=== PATIENT | female | born 1940 | race Caucasian/White ===

== ENCOUNTER 2021-02-11 16:22 | Observation (INO) | payer OTHER ==
[2021-02-11 17:32] VITALS: BMI 25.8
[2021-02-11] MEDS ORDERED: HALOPERIDOL LACTATE 5 MG/ML IV ONE (19:19)
[2021-02-11 19:20] LABS: BASO % 0.2 % (0-2.0); EOS % 0.7 % (0-4.5); HEMATOCRIT 36.6 % (32.4-45.2); HEMOGLOBIN 12.5 GM/dL (10.7-15.3); LYMPH % 33.6 % (8-40); MCH 29.5 pg (25.7-33.7); MCHC 34.3 g/dl (32.0-36.0); MEAN PLT VOLUME 7.9 fl (7.5-11.1); MONO % 7.9 % (3.8-10.2); NEUT % 57.6 % (42.8-82.8); PLATELET COUNT 141 10^3/uL (134-434); RBC 4.25 M/mm3 (3.60-5.2); RDW 15.7 % (11.6-15.6); WHITE BLOOD COUNT 7.1 K/mm3 (4.0-10.0)
[2021-02-11] MEDS ORDERED: DIPHTH,PERTUSS(ACELL),TET 0.5 ML DISP.SYRIN IM ONE ×2 (19:20→19:44)
[2021-02-11 19:36] LABS: CHLORIDE 104 mmol/L (98-107); SODIUM 141 mmol/L (136-145)
[2021-02-11 19:37] LABS: ALBUMIN 3.1 g/dl (3.4-5.0); ANION GAP 6 MMOL/L (8-16); CALCIUM 9.3 mg/dL (8.5-10.1); CO2 30 mmol/L (21-32); GLUCOSE,RANDOM 90 mg/dL (74-106)
[2021-02-11 19:40] LABS: CREATININE 0.8 mg/dL (0.55-1.3); SGPT/ALT 27 U/L (13-61)
[2021-02-11 19:41] LABS: SGOT/AST 38 U/L (15-37)
[2021-02-11 19:42] LABS: BILIRUBIN,TOTAL 0.6 mg/dL (0.2-1); TOT PROT 6.4 g/dl (6.4-8.2)
[2021-02-11 19:43] LABS: ALK PHOS 76 U/L (45-117)
[2021-02-11] MEDS ORDERED: HALOPERIDOL LACTATE 5 MG/ML ONE (19:43)
[2021-02-11 23:02] LABS: EPI CELLS >36 /uL (0-25.1); HYALINE CASTS 19 /uL (0-3.1); PH,URINE 5.5 (5.0-8.0); URINE APPEARANCE CLOUDY; URINE BACTERIA 6110 /uL (0-1359); URINE BILIRUBIN NEGATIVE (NEGATIVE); URINE COLOR DK YELLOW; URINE GLUCOSE (UA) NEGATIVE (NEGATIVE); URINE KETONE TRACE (NEGATIVE); URINE LEUK ESTERASE 1+ (NEGATIVE); URINE NITRITE NEGATIVE (NEGATIVE); URINE PROTEIN TRACE (NEGATIVE); URINE WBC 71 /uL (0-25.8)
[2021-02-11 23:55] LABS: URINE RBC 81.1 /uL (0-23.9)
[2021-02-12] MEDS ORDERED: ACETAMINOPHEN 325 MG TABLET (FP) PO PRN (06:05)
[2021-02-12] MEDS ORDERED: SENNOSIDES 8.6MG TABLET (FP) PO PRN (06:08)
[2021-02-12] MEDS ORDERED: CEFTRIAXONE 1 GM in DEXTROSE 5%-WATER - 50 ML IVPB ONE (06:11)
[2021-02-12] MEDS ORDERED: CEFTRIAXONE 1 GM/50 ML BAG ONE ×2 (06:21→10:01)
[2021-02-12 07:52] LABS: CHLORIDE 106 mmol/L (98-107)
[2021-02-12 07:58] LABS: ALBUMIN 2.7 g/dl (3.4-5.0); BLOOD UREA NITROGEN 22.1 mg/dL (7-18); CALCIUM 9.1 mg/dL (8.5-10.1); CO2 29 mmol/L (21-32); GLUCOSE,RANDOM 86 mg/dL (74-106); MAGNESIUM 2.1 mg/dL (1.8-2.4)
[2021-02-12 08:01] LABS: SGPT/ALT 24 U/L (13-61)
[2021-02-12 08:02] LABS: CREATININE 0.8 mg/dL (0.55-1.3); SGOT/AST 25 U/L (15-37)
[2021-02-12 08:03] LABS: BILIRUBIN,TOTAL 0.8 mg/dL (0.2-1); TOT PROT 5.8 g/dl (6.4-8.2)
[2021-02-12 08:04] LABS: ALK PHOS 65 U/L (45-117)
[2021-02-12 08:06] LABS: ANION GAP 6 MMOL/L (8-16); SODIUM 141 mmol/L (136-145)
[2021-02-12 08:24] LABS: BASO % 0.2 % (0-2.0); EOS % 1.3 % (0-4.5); HEMATOCRIT 34.2 % (32.4-45.2); HEMOGLOBIN 11.7 GM/dL (10.7-15.3); LYMPH % 41.4 % (8-40); MCH 29.7 pg (25.7-33.7); MEAN CELL VOLUME 87.2 fl (80-96); MEAN PLT VOLUME 8.2 fl (7.5-11.1); MONO % 8.2 % (3.8-10.2); NEUT % 48.9 % (42.8-82.8); PLATELET COUNT 118 10^3/uL (134-434); RBC 3.93 M/mm3 (3.60-5.2); WHITE BLOOD COUNT 5.7 K/mm3 (4.0-10.0)
[2021-02-12] MEDS ORDERED: MEMANTINE HCL 10 MG TABLET (FP) PO SCH (10:00)
[2021-02-12] MEDS ORDERED: ESCITALOPRAM OXALATE 20 MG TABLET PO SCH (10:00)
[2021-02-12] MEDS ORDERED: ESCITALOPRAM OXALATE 10 MG TABLET ONE (10:01)
[2021-02-12 15:20] VITALS: TEMP 98.2
[2021-02-12 20:35] VITALS: BP 118/72; PULSE 69
[2021-02-13] MEDS ORDERED: CEFTRIAXONE 1 GM in DEXTROSE 5%-WATER - 50 ML IVPB SCH (10:00)
== END 2021-02-12 22:57 ==
LOC: JER 16:22 → JERBED 22:47
PROVIDERS: ADMIT Internal Medicine; ATTEND Family Medicine
PROC: 3E0234Z Introduction of Serum, Toxoid and Vaccine into Muscle, Percutaneous Approach (ICD-10-PCS; principal; 2021-02-11)
PROC: 3E033GC Introduction of Other Therapeutic Substance into Peripheral Vein, Percutaneous Approach (ICD-10-PCS; 2021-02-11)
PROC: 3E03329 Introduction of Other Anti-infective into Peripheral Vein, Percutaneous Approach (ICD-10-PCS; 2021-02-11)
PROC: 0HQ1XZZ Repair Face Skin, External Approach (ICD-10-PCS; 2021-02-11)
DX: Z04.3 Encounter for examination and observation following other accident (principal); S01.112A Laceration without foreign body of left eyelid and periocular area, initial encounter; W19.XXXA Unspecified fall, initial encounter; Z91.81 History of falling; Y93.9 Activity, unspecified; Y92.129 Unspecified place in nursing home as the place of occurrence of the external cause; R55 Syncope and collapse; N39.0 Urinary tract infection, site not specified; I10 Essential (primary) hypertension; F03.90 Unspecified dementia, unspecified severity, without behavioral disturbance, psychotic disturbance, mood disturbance, and anxiety; F32.A Depression, unspecified; I69.321 Dysphasia following cerebral infarction
CPT/HCPCS: 12011-25; 36415; 70450-TC; 71045-TC-FY; 72125-TC; 72170-TC-FY; 80053; 81003; 82550; 83735; 84484; 85025; 87086; 87186; 90471; 90715; 93005; 93010; 96365; 96375; 99285-25; C9803; G0378; U0003; U0005

== ENCOUNTER 2021-10-01 20:05 | Inpatient (IN) | payer OTHER ==
[2021-10-01 20:14] VITALS: BMI 25.6
[2021-10-01 21:44] LABS: INR 0.97 (0.83-1.09); PROTHROMBIN TIME (PATIENT) 11.2 SEC (9.7-13.0)
[2021-10-01 21:47] LABS: ACTIVATED PTT 20.6 SECONDS (25.2-36.5)
[2021-10-01 21:54] LABS: BASO % 0.2 % (0-2.0); EOS % 0.3 % (0-4.5); HEMATOCRIT 34.2 % (32.4-45.2); HEMOGLOBIN 11.6 GM/dL (10.7-15.3); LYMPH % 41.5 % (8-40); MCH 29.1 pg (25.7-33.7); MEAN CELL VOLUME 85.7 fl (80-96); MEAN PLT VOLUME 7.7 fl (7.5-11.1); MONO % 14.5 % (3.8-10.2); NEUT % 43.5 % (42.8-82.8); PLATELET COUNT 57 10^3/uL (134-434); RDW 15.9 % (11.6-15.6); WHITE BLOOD COUNT 3.3 K/mm3 (4.0-10.0)
[2021-10-01 21:56] LABS: BLOOD UREA NITROGEN 45.2 mg/dL (7-18); CALCIUM 9.5 mg/dL (8.5-10.1)
[2021-10-01 21:59] LABS: CREATININE 0.9 mg/dL (0.55-1.3)
[2021-10-01 22:01] LABS: BILIRUBIN,TOTAL 0.4 mg/dL (0.2-1); TOT PROT 6.8 g/dl (6.4-8.2)
[2021-10-01 22:04] LABS: N-TERMINAL BNP 525.5 pg/ml (5-450)
[2021-10-01 22:40] LABS: PLATELET ESTIMATE DECREASED
[2021-10-01 23:14] LABS: CALCIUM 9.6 mg/dL (8.5-10.1)
[2021-10-01 23:15] LABS: BLOOD UREA NITROGEN 41.1 mg/dL (7-18)
[2021-10-01 23:23] LABS: EPI CELLS 14 /uL (0-25.1); HYALINE CASTS 5 /uL (0-3.1); PH,URINE 8.5 (5.0-8.0); URINE APPEARANCE TURBID; URINE BACTERIA >9,000 /uL (0-1359); URINE BILIRUBIN NEGATIVE (NEGATIVE); URINE COLOR YELLOW; URINE GLUCOSE (UA) NEGATIVE (NEGATIVE); URINE KETONE 1+ (NEGATIVE); URINE LEUK ESTERASE 3+ (NEGATIVE); URINE NITRITE NEGATIVE (NEGATIVE); URINE PROTEIN 3+ (NEGATIVE); URINE RBC 21 /uL (0-23.9); URINE WBC 3640 /uL (0-25.8)
[2021-10-01] MEDS ORDERED: LACTATED RINGERS SOLUTION 1000 ML INFUS.BAG IV ONE (23:35)
[2021-10-01] MEDS ORDERED: CEFTRIAXONE 1 GM in DEXTROSE 5%-WATER - 100 ML IVPB ONE (23:35)
[2021-10-01] MEDS ORDERED: CEFTRIAXONE 1 GM/50 ML BAG ONE (23:36)
[2021-10-01] MEDS ORDERED: SODIUM CHLORIDE 0.9% 500 ML INFUS.BAG IV ONE (23:40)
[2021-10-01 23:51] LABS: CREATININE 0.8 mg/dL (0.55-1.3)
[2021-10-02 01:58] VITALS: TEMP 97.4
[2021-10-02 02:01] LABS: BLOOD UREA NITROGEN 38.2 mg/dL (7-18); CALCIUM 8.9 mg/dL (8.5-10.1)
[2021-10-02 02:04] LABS: CREATININE 0.7 mg/dL (0.55-1.3)
[2021-10-02] MEDS ORDERED: DEXTROSE 5%-0.45% SALINE 1,000 ML IV SCH (05:30)
[2021-10-02 08:19] LABS: BASO % 0.5 % (0-2.0); EOS % 0.8 % (0-4.5); HEMATOCRIT 32.8 % (32.4-45.2); HEMOGLOBIN 11.1 GM/dL (10.7-15.3); LYMPH % 43.6 % (8-40); MCH 29.1 pg (25.7-33.7); MCHC 33.8 g/dl (32.0-36.0); MEAN CELL VOLUME 86.2 fl (80-96); MEAN PLT VOLUME 7.8 fl (7.5-11.1); MONO % 15.7 % (3.8-10.2); NEUT % 39.4 % (42.8-82.8); PLATELET COUNT 54 10^3/uL (134-434); RBC 3.81 M/mm3 (3.60-5.2); RDW 15.3 % (11.6-15.6)
[2021-10-02 08:41] LABS: CALCIUM 9.2 mg/dL (8.5-10.1)
[2021-10-02 08:42] LABS: BLOOD UREA NITROGEN 39.4 mg/dL (7-18)
[2021-10-02 08:47] LABS: CREATININE 0.7 mg/dL (0.55-1.3)
[2021-10-02] MEDS ORDERED: DEXTROSE 5%-WATER - 1,000 ML with POTASSIUM CHLORIDE 10 MEQ IV SCH (16:15)
[2021-10-02] MEDS ORDERED: POTASSIUM CHLORIDE 10 MEQ in DEXTROSE 5%-WATER - 1,000 ML IV SCH (16:32)
[2021-10-02 21:46] VITALS: BP 140/87; PULSE 62; RESP 18
[2021-10-02] MEDS ORDERED: CEFTRIAXONE 1 GM in DEXTROSE 5%-WATER - 50 ML IVPB SCH (22:00)
== END 2021-10-02 21:55 | DRG 690 ==
LOC: JER 20:05 → JERBED 22:42
PROVIDERS: ADMIT Internal Medicine; ATTEND Family Medicine
DX: N39.0 Urinary tract infection, site not specified (principal); E87.0 Hyperosmolality and hypernatremia; N17.9 Acute kidney failure, unspecified; R55 Syncope and collapse; F03.90 Unspecified dementia, unspecified severity, without behavioral disturbance, psychotic disturbance, mood disturbance, and anxiety; F32.A Depression, unspecified; I44.4 Left anterior fascicular block; I69.391 Dysphagia following cerebral infarction; R13.10 Dysphagia, unspecified; D69.6 Thrombocytopenia, unspecified
CPT/HCPCS: 36415; 70450-TC; 70486-TC; 71045-TC-FY; 72125-TC; 72170-TC-FY; 80048; 80053; 81003; 83880; 84484; 85025; 85610; 85730; 87086; 87186; 93005; 93010; 99291; 99292; C9803-CS; U0003; U0005